=== PATIENT | female | born 2000 | race African-American/Black ===

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

== ENCOUNTER → 2021-04-07 | Outpatient (CLI) | payer OTHER ==
--- NOTE | 2021-04-07 15:39 | P.HPBAR ---
Bariatric H&P - History & Physicial H&P Date: 04/07/21 History & Physicial: Visit/CC: Patient initial contact: Initial weight: Initial weight in pounds: Height: 5 ft 4.5 in Initial BMI: Last weight: Current weight: 137.03 kg Current weight in pounds: Current BMI: [place] body weight (based on NIH guidelines): Excess body weight loss: The patient is a 21 year-old F who presents for Bariatric Assessment. DATE OF SERVICE: 04/07/2021 REASON FOR CONSULTATION: Initial bariatric evaluation. HISTORY OF PRESENT ILLNESS: Guillaume Desouza is a 21-year-old female who comes with lifelong morbid obesity. She has tried fasting. She reports new diagnosis of polycystic ovarian syndrome. Her grandmother has troubles with weight and had bariatric surgery. She is looking into the sleeve gastrectomy. She denies inflammatory bowel disease. She has lower back pain, hip pain, knee pain, left ankle pain, and bilateral foot pressure. She denies depression. She denies prior smoking. She has trouble with sleeping including falling asleep. She has A1c which she believes was normal. She reports chronic abdominal pain for years. She has her gallbladder. She has left upper quadrant and pelvic pain. She denies blood in stools. She denies chronic diarrhea. She has new change in bowel habits. She wants to be in a large not PLUS size. She has always been overweight including in high school. Her highest weight is present. She lost 20 pounds and regained her weight. At height of 5 feet 4.5 inches, her ideal body weight is 144 pounds. She comes in 301 pounds. Her body mass index is 51.1. She is 157 pounds overweight. PAST MEDICAL HISTORY: 1. Morbid obesity due to excess calories 2. Body mass index of 51.1, initial 3. Generalized anxiety disorder 4. Polycystic ovarian syndrome. 5. Osteoarthritis lower back. 6. Osteoarthritis hips 7. Osteoarthritis knees 8. Osteoarthritis left ankle 9. Osteoarthritis of the feet PAST SURGICAL HISTORY: 1. No abdominal surgeries HOME MEDICATIONS: Home Medications Medication Instructions Recorded Confirmed metFORMIN HCL [Glucophage] 500 mg PO BID 04/07/21 06/14/21 ALLERGIES: Allergies Allergy/AdvReac Type Severity Reaction Status Date / Time No Known Allergies Allergy Verified 06/14/21 08:53 SOCIAL HISTORY: Denies past tobacco use. FAMILY HISTORY: No family history of ulcerative colitis disease or Crohn's disease. Family history of morbid obesity. No lupus in the family. No reports of stomach or esophageal cancer. Her grandmother has troubles with weight and had bariatric surgery. REVIEW OF ORGAN SYSTEMS: CONSTITUTIONAL: HEENT: Denies any active troubles with vision or hearing. ENDOCRINE: Has diabetes. No hypothyroidism. CARDIOVASCULAR: Past reports of palpitations or heart attacks or chest pain. RESPIRATORY: Denies asthma. She has daytime somnolence. GASTROINTESTINAL: Denies any bright red blood per rectum. No diarrhea. No constipation. Has gastroesophageal reflux disease. GENITOURINARY: No recent blood in urine MUSCULOSKELETAL: Has lower back pain and joint pain. Has osteoarthritis of the knees. NEURO: No headaches. No seizure disorders. PSYCH: Denies depression. No suicidal ideation. RHEUMATOLOGIC: No lupus. No rheumatoid arthritis. HEMATOLOGIC: Denies any abnormal bleeding or bruising. SKIN: No rash. No skin cancer. PHYSICAL EXAM: VITAL SIGNS: Height 5 foot 4.5 inches, weight 301 pounds. BMI 51.1 Vital Signs Temp 98.2 F 04/07/21 15:30 Pulse 92 04/07/21 15:30 Resp 18 04/07/21 15:30 BP 123/89 04/07/21 15:30 Pulse Ox GENERAL: Well-developed in no acute distress. HEENT: No scleral icterus. Extraocular movements grossly intact. Hears conversational speech. No nasal drainage. NECK: Supple without lymphadenopathy. CHEST: Nonlabored respirations with equal bilateral excursions. CARDIOVASCULAR: Regular rate and regular rhythm. Distal 2+ pulses. ABDOMEN: Obese, soft, nontender, nondistended. MUSCULOSKELETAL: No clubbing, cyanosis. Gross strength grossly within normal limits. NEURO: No focal or lateralizing signs. Cranial nerves 2 through 12 grossly within normal limits. PSYCH: Appropriate affect. Alert and oriented to person, place and time. SKIN: Good skin turgor. Well perfused. ASSESSMENT: 1. Morbid obesity due to excess calories 2. Body mass index of 51.1, initial 3. Generalized anxiety disorder 4. Polycystic ovarian syndrome. 5. Osteoarthritis lower back. 6. Osteoarthritis hips 7. Osteoarthritis knees 8. Osteoarthritis left ankle 9. Osteoarthritis of the feet 10. Sleep disorder 11. Chronic abdominal pain 12. Change in bowel habits PLAN: 1. Surgical options including a band, gastric bypass, sleeve gastrectomy were described in detail. Alternatives such as gastric balloon including duodenal switch were described. She is looking into the sleeve gastrectomy. 2. The [place] bariatric surgical collaborative data and outcomes calculator were described with surgical options. Her risk of complications for sleeve gastrectomey is 4.96% for all. 3. Recommend a bariatric metabolic panel to evaluate for micro- including macronutrient deficiencies. 4. For history of daytime somnolence, recommend evaluation and treatment for s leep apnea. 5. Dietary surveillance and counseling was reviewed. Increased protein intake over 65 grams daily advised. 6. Will need cardiac risk assessment. 7. Recommend medical risk assessment. 8. Psych assessment per insurance guidelines. 9. Recommend upper endoscopy. 10. Recommend 12-lead EKG. 11. Recommend urine drug screen 12. Recommend CT of the abdomen and pelvis for her abdominal pain. 13. Recommend colonoscopy for change in bowel habits. Thank you for this consultation. Past Medical History Past Medical History: No Reported History History of Any Multi-Drug Resistant Organisms: None Reported Past Surgical History: No Surgical Hx Reported Past Psychological History: No Psychological Hx Reported Past Alcohol Use History: None Reported Past Drug Use History: None Reported Results - Labs 04/07/21 16:07 04/07/21 16:07 Bariatric Checklist Checklist: Plan: Checklist: EGD: 1. Hiatal hernia: 2. H. Pylori: HgbA1c: Vitamin D: Smoking: Never smoker Primary care physician referral: Psychiatry clearance: Cardiology clearance: Sleep study: Diet journal: VTE risk score: VTE risk level: Rehab needs at discharge:
[2021-04-07 15:53] VITALS: BP 123/89; PULSE 92; RESP 18; TEMP 98.2; BMI 51.0
[2021-04-07 17:22] LABS: Partial Thromboplastin Time 26.6 sec (22.0-30.0); Prothrombin Time 10.3 sec (9.0-12.0)
[2021-04-07 17:23] LABS: HCT 41.1 % (34.0-46.0); HGB 14.3 gm/dL (11.4-16.0); MCH 31.3 pg (25.0-35.0); MCHC 34.8 g/dL (31.0-37.0); MCV 89.9 fL (80.0-100.0); Mean Platelet Volume 7.1; Platelet Count 363 k/uL (150-450); RBC 4.57 m/uL (3.80-5.40); RDW 12.1 % (11.5-15.5); WBC 11.1 k/uL (4.0-11.0)
[2021-04-08 01:42] LABS: Hemoglobin A1C 4.8 % (4.0-6.0)
[2021-04-08 04:32] LABS: % Iron Saturation 28.88 (12.00-45.00); African American GFR (CKD) 144.6 (60.0-200.0); Albumin 4.5 g/dL (3.80-4.90); Albumin/Globulin Ratio 1.8 (1.60-3.17); Anion Gap 10.1 mmol/L (4.00-12.00); Calcium 9.3 mg/dL (8.7-10.3); Carbon Dioxide 23.9 mmol/L (21.6-31.8); Chol/HDL Ratio 4.4; Globulin 2.5 g/dL (1.6-3.3); LDL Cholesterol,Calculated 140.2 mg/dL (0.0-131.0); Magnesium 1.8 mg/dL (1.5-2.4); Non-African American GFR(CKD) 124.7 (60.0-200.0); Phosphorus 4.2 mg/dL (2.4-5.1); Potassium 4.1 mmol/L (3.5-5.5); Total Bilirubin 0.4 mg/dL (0.3-1.2); VLDL Calculation 19.8 mg/dL (5.00-40.00)
[2021-04-08 04:42] LABS: Ferritin 45.1 ng/mL (10.0-291.0); Folate, Serum 5.6 ng/mL
[2021-04-08 14:46] LABS: Vitamin A 39 ug/dL (38-106)
[2021-04-08 15:07] LABS: Zinc, Serum 64 ug/dL (60-130)
[2021-04-09 06:56] LABS: Vit B1(Thiamine) 78 ug/L (38-122)
[2021-04-10 15:57] LABS: Anabasine Urine <2.0 ng/mL (<2.0)
[2021-04-12 10:53] LABS: Selenium 100 mcg/L (63-160)
== END ==
LOC: BARWHC3 15:03
PROVIDERS: ATTEND Surgery Plastic and Reconstructive Surgery
DX: E66.01 Morbid (severe) obesity due to excess calories (principal); F41.1 Generalized anxiety disorder; E28.2 Polycystic ovarian syndrome; M47.9 Spondylosis, unspecified; M17.0 Bilateral primary osteoarthritis of knee; M16.0 Bilateral primary osteoarthritis of hip; M19.071 Primary osteoarthritis, right ankle and foot; M19.072 Primary osteoarthritis, left ankle and foot; G47.8 Other sleep disorders; R10.9 Unspecified abdominal pain; G89.29 Other chronic pain; Z68.43 Body mass index [BMI] 50.0-59.9, adult
CPT/HCPCS: 84255; 84134; 84425; 80061; 80053; 82607; 82728; 82525; 82746; 83540; 83550; 83735; 84100; 84443; 84590; 84630; 85027; 85610; 85730; 82306; 83970; 83036; 93005; G0480; G0463; 80323; 99203

== ENCOUNTER 2021-06-14 08:37 | Day surgery (SDC) | payer OTHER ==
[~2021-06-14 08:37] MED LIST: LACTATED RINGERS 1,000 ML IV SCH; LIDOCAINE 1% (10MG/ML) FOR IV START INTRADERMA PRN
[2021-06-14 09:13] VITALS: RESP 16; TEMP 97.4
[2021-06-14 09:13] LABS: Glucose,Whole Blood 87 mg/dL (75-99)
[2021-06-14] MEDS ORDERED: PROPOFOL 10 MG/ML 20 ML VIAL IV ONE (09:17)
[2021-06-14] MEDS ORDERED: LIDOCAINE 1% INJ 10MG/ML (20 ML MDV) ONE (09:17)
--- NOTE | 2021-06-14 09:32 | P.GSHP ---
History of Present Illness H&P Date: 06/14/21 CHIEF COMPLAINT: GERD HISTORY OF PRESENT ILLNESS: The patient is a 21-year-old female who presents reports gastroesophageal reflux disease. Upper endoscopy was offered for further evaluation and management. PAST MEDICAL HISTORY: Please see list. PAST SURGICAL HISTORY: Please see list. MEDICATIONS: Please see list. ALLERGIES: Please see list. SOCIAL HISTORY: No illicit drug use FAMILY HISTORY: No reports of Crohn disease or ulcerative colitis. REVIEW OF ORGAN SYSTEMS: CONSTITUTIONAL: No reports of fevers or chills. GI: Denies any blood in stools or constipation. PHYSICAL EXAM: VITAL SIGNS: Stable GENERAL: Well-developed and pleasant in no acute distress. HEENT: No scleral icterus. Extraocular movements grossly intact. Moist buccal mucosa. NECK: Supple without lymphadenopathy. CHEST: Unlabored respirations. Equal bilateral excursions. CARDIOVASCULAR: Regular rate and rhythm. Distal 2+ pulses. ABDOMEN: Soft, nondistended. MUSCULOSKELETAL: No clubbing, cyanosis, or edema. ASSESSMENT: 1. Gastroesophageal reflux disease PLAN: 1. Recommend proceeding with an upper endoscopy Past Medical History Past Medical History: No Reported History Additional Past Medical History / Comment(s): PCOS - metformin. History of Any Multi-Drug Resistant Organisms: None Reported Past Surgical History: No Surgical Hx Reported Additional Past Surgical History / Comment(s): BEING EVALUATED FOR BARIATRIC SURGERY Past Anesthesia/Blood Transfusion Reactions: No Reported Reaction, Motion Sickness Additional Past Anesthesia/Blood Transfusion Reaction / Comment(s): 04/07/21 - Pt reports never having anesthesia or blood transfusion. Past Psychological History: No Psychological Hx Reported Additional Psychological History / Comment(s): social anxiety, NO MEDS Smoking Status: Never smoker Past Alcohol Use History: None Reported Past Drug Use History: None Reported Medications and Allergies Home Medications Medication Instructions Recorded Confirmed Type metFORMIN HCL [Glucophage] 500 mg PO BID 04/07/21 06/14/21 History Allergies Allergy/AdvReac Type Severity Reaction Status Date / Time No Known Allergies Allergy Verified 06/14/21 08:53 Surgical - Exam Vital Signs Temp Pulse Resp BP Pulse Ox 97.4 F L 85 16 124/65 96 06/14/21 09:04 06/14/21 09:04 06/14/21 09:04 06/14/21 09:04 06/14/21 09:04
--- NOTE | 2021-06-14 09:44 | P.PCN ---
Date of Procedure: 06/14/21 Description of Procedure: PREOPERATIVE DIAGNOSIS: Gastroesophageal reflux disease. Morbid obesity. POSTOPERATIVE DIAGNOSIS: Morbid obesity. Gastritis. Gastroesophageal reflux disease. OPERATION: Esophagogastroduodenoscopy with biopsies along antrum. SURGEON: Mercy Smith MD ANESTHESIA: MAC. INDICATIONS: The patient is a 21-year-old female who presents with a history of reflux disease. Benefits and risks of the procedure were described. Informed consent was obtained. DESCRIPTION: The patient was brought into the endoscopy suite and laid in the left lateral decubitus position. An Olympus gastroscope was passed along the posterior oropharynx down to the distal esophagus where the squamocolumnar junction was encountered at 35 cm from the incisors. The stomach was entered and no bile reflux was found. Additional findings are listed below. Biopsies with cold forceps were obtained of the antrum. The first through third portion of the duodenum was examined and unremarkable. Retroflexion of the scope confirmed Hill grade 2 lower esophageal valve. The squamocolumnar junction demonstrated LA grade B erosive esophagitis. The stomach was desufflated. The patient tolerated the procedure well. FINDINGS: Squamocolumnar junction 35 cm from the incisors. Diaphragmatic hiatus at 35 cm. Hill grade 2 lower esophageal valve. LA grade B erosive esophagitis. No active duodenitis. Chronic gastritis with recent bleed RECOMMENDATIONS: Upper endoscopy as needed. Plan - Discharge Summary Discharge Rx Participant: No New Discharge Prescriptions: Continue metFORMIN HCL [Glucophage] 500 mg PO BID Discharge Medication List metFORMIN HCL [Glucophage] 500 mg PO BID 04/07/21 [History] [facility]Ref[facility] [place] [facility] [place] [facility] Patient Instructions/Handouts: Gastroesophageal Reflux Disease (ED), Gastritis (DC) Discharge Disposition: HOME SELF-CARE
[2021-06-14 09:46] VITALS: BP 116/78; PULSE 69
== END 2021-06-14 10:12 | disposition home or self-care (01) ==
LOC: ORWHC2ENDO 08:37
PROVIDERS: ATTEND Surgery Plastic and Reconstructive Surgery
DX: K29.50 Unspecified chronic gastritis without bleeding (principal); E28.2 Polycystic ovarian syndrome; F41.8 Other specified anxiety disorders; E11.9 Type 2 diabetes mellitus without complications; Z79.84 Long term (current) use of oral hypoglycemic drugs
CPT/HCPCS: 81025; 88305; 43239; J2001; J2704

== ENCOUNTER → 2021-07-17 | Outpatient (CLI) | payer OTHER ==
--- NOTE | 2021-07-19 07:57 | US ---
EXAMINATION TYPE: US pelvis complete transvag DATE OF EXAM: 07/17/2021 COMPARISON: NONE CLINICAL HISTORY: R10.2 pelvic pain. TECHNIQUE: Transvaginal (TV) and Transabdominal (TA) . Transabdominal sonographic images of the pel vis were acquired. Transvaginal sonographic images were medically necessary to better assess the fol lowing anatomy: ovaries Date of LMP: 07/04/2021 EXAM MEASUREMENTS: Uterus: 8.3 x 2.9 x 3.8 cm Endometrial Stripe: 0.5 cm Right Ovary: 4.9 x 2.4 x 2.9 cm Left Ovary: 2.9 x 1.7 x 2.4 cm 1. Uterus: Anteverted wnl 2. Endometrium: wnl 3. Right Ovary: wnl 4. Left Ovary: echogenic lesion measuring 1.3 x 1.1 x 1.4 cm. Spectral, color and waveform doppler imaging shows good arterial and venous flow within the ovaries ; there is no evidence for ovarian torsion. 5. Bilateral Adnexa: wnl 6. Posterior cul-de-sac: no free fluid IMPRESSION: Echogenic lesion left ovary may reflect a small dermoid. Examination is otherwise unremarkable.
== END | disposition home or self-care (01) ==
LOC: RADUSWWP 10:14
PROVIDERS: ATTEND Obstetrics & Gynecology
DX: N83.9 Noninflammatory disorder of ovary, fallopian tube and broad ligament, unspecified (principal)
CPT/HCPCS: 76830; 76856

== ENCOUNTER → 2021-12-20 | Outpatient (CLI) | payer OTHER ==
[2021-12-20 11:17] VITALS: BMI 45.6
== END ==
LOC: BARWHC3 09:12
PROVIDERS: ATTEND Surgery Plastic and Reconstructive Surgery
DX: E66.01 Morbid (severe) obesity due to excess calories (principal); Z71.3 Dietary counseling and surveillance; Z71.51 Drug abuse counseling and surveillance of drug abuser; Z68.42 Body mass index [BMI] 45.0-49.9, adult
CPT/HCPCS: 97804; G0480; 80323

== ENCOUNTER → 2021-12-20 | Outpatient (CLI) | payer OTHER ==
--- NOTE | 2021-12-20 11:10 | XR ---
EXAMINATION TYPE: XR chest 1V DATE OF EXAM: 12/20/2021 COMPARISON: NONE HISTORY: Presurgical study. TECHNIQUE: Single frontal view of the chest is obtained. FINDINGS: There is no focal air space opacity, pleural effusion, or pneumothorax seen. The cardiac silhouette size is within normal limits. The osseous structures are intact. IMPRESSION: No acute process.
== END | disposition home or self-care (01) ==
LOC: RADXRMAIN 10:51
PROVIDERS: ATTEND Surgery Plastic and Reconstructive Surgery
DX: Z01.818 Encounter for other preprocedural examination (principal); G47.30 Sleep apnea, unspecified
CPT/HCPCS: 71045

== ENCOUNTER → 2023-05-26 | Outpatient (CLI) | payer OTHER ==
[2023-05-26 15:30] LABS: INR 1.1 (<1.2); Partial Thromboplastin Time 28.3 sec (22.0-30.0); Prothrombin Time 11.4 sec (9.0-12.0)
[2023-05-26 20:56] LABS: Prealbumin 18.4 mg/dL (18.0-42.0)
[2023-05-26 21:04] LABS: Chol/HDL Ratio 5.73 Ratio; LDL Cholesterol,Calculated 164.3 mg/dL (0.0-131.0); Magnesium 1.9 mg/dL (1.5-2.4); VLDL Calculation 10.72 mg/dL (5.00-40.00)
[2023-05-26 21:05] LABS: ALT 22 U/L (8-44); AST 14 U/L (13-35); Albumin 4.6 d/dL (3.8-4.9); Albumin/Globulin Ratio 1.59 Ratio (1.60-3.17); Alkaline Phosphatase 81 U/L (41-126); BUN/Creat Ratio 12.75 Ratio (12.00-20.00); Blood Urea Nitrogen 10.2 mg/dL (9.0-27.0); Calcium 9.6 mg/dL (8.7-10.3); Carbon Dioxide 24.2 mmol/L (21.6-31.8); Chloride 105 mmol/L (96-109); Globulin 2.9 d/dL (1.6-3.3); Glucose 78 mg/dL (70-110); Iron 64 UG/DL (50-170); Phosphorus 3.8 mg/dL (2.4-5.1); Sodium 142 mmol/L (135-145); Total Bilirubin 0.4 mg/dL (0.3-1.2); Total Iron Binding Capacity 335 UG/DL (228-460); Total Protein 7.5 d/dL (6.2-8.2)
[2023-05-26 21:42] LABS: HCT 43.7 % (37.2-46.3); HGB 14.2 d/dL (12.0-15.0); MCH 30.1 pg (27.0-32.0); MCHC 32.5 d/dL (32.0-37.0); MCV 92.6 FL (80.0-97.0); Mean Platelet Volume 10.8 FL (9.5-12.2); NRBC Per 100 WBC 0 X 10*3/uL (0.00-0.01); Platelet Count 354 X 10*3/uL (140-440); RBC 4.72 X 10*6/uL (4.10-5.20); RDW 12.1 % (11.5-14.5); WBC 10.76 X 10*3/uL (4.50-10.00)
[2023-05-29 13:31] LABS: Zinc, Serum 78 ug/dL (60-130)
[2023-05-30 06:04] LABS: Vitamin A 34 ug/dL (38-106)
[2023-05-30 06:25] LABS: Vit B1(Thiamine) 65 ug/L (38-122)
[2023-05-30 06:49] LABS: Anabasine Urine <2.0 ng/mL (<2.0)
== END | disposition home or self-care (01) ==
LOC: LABWHC1 13:27
PROVIDERS: ATTEND Surgery Plastic and Reconstructive Surgery
DX: Z01.812 Encounter for preprocedural laboratory examination (principal); Z71.51 Drug abuse counseling and surveillance of drug abuser; E66.01 Morbid (severe) obesity due to excess calories; D50.8 Other iron deficiency anemias; E44.1 Mild protein-calorie malnutrition; E44.0 Moderate protein-calorie malnutrition; E45 Retarded development following protein-calorie malnutrition; E55.9 Vitamin D deficiency, unspecified; K74.1 Hepatic sclerosis; N19 Unspecified kidney failure; T56.894A Toxic effect of other metals, undetermined, initial encounter; K50.90 Crohn's disease, unspecified, without complications
CPT/HCPCS: 84255; 84134; 84425; 80061; 80053; 82607; 82728; 82525; 82746; 83540; 83550; 83735; 84100; 84443; 84590; 84630; 85027; 85610; 85730; 82306; 83970; 83036; 36415; G0480; 80323

== ENCOUNTER → 2024-01-17 | Outpatient (CLI) | payer OTHER ==
[2024-01-17 14:18] VITALS: BP 119/81; PULSE 73; TEMP 97.9; BMI 50.1
--- NOTE | 2024-01-17 14:33 | P.HPBAR ---
Bariatric H&P - History & Physicial H&P Date: 01/17/24 History & Physicial: Visit/CC: paolo consult Patient initial contact: Initial weight: 135.766 kg Initial weight in pounds: 299.31 Height: 5 ft 4 in Initial BMI: 51.3 Last weight: Current weight: 132.449 kg Current weight in pounds: 292.00 Current BMI: 50.1Highest [place] body weight (based on NIH guidelines): 54.431 kg Excess body weight loss: 4.0% The patient is a 23 year-old F who presents for Bariatric Assessment. 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 She was on saxenda without success. She is on wegovy. Highest weight is BMI over 50. Protein intake of 80 g, carbs of 35 grams net. Has intermittent nausea with saxenda. Has nausea. Highest 312 pounds. She wants the sleeve gastrectomy. Past Medical History Past Medical History: GERD/Reflux Additional Past Medical History / Comment(s): PCOS - metformin. Endometriosis. History of Any Multi-Drug Resistant Organisms: None Reported Past Surgical History: No Surgical Hx Reported Additional Past Surgical History / Comment(s): BEING EVALUATED FOR BARIATRIC SURGERY Past Anesthesia/Blood Transfusion Reactions: No Reported Reaction, Motion Sickness Additional Past Anesthesia/Blood Transfusion Reaction / Comm: 04/07/21 - Pt reports never having anesthesia or blood transfusion. Past Psychological History: No Psychological Hx Reported Additional Psychological History / Comment(s): social anxiety, NO MEDS Smoking Status: Never smoker Past Alcohol Use History: None Reported Past Drug Use History: None Reported Surgical - Exam Vital Signs Temp Pulse BP 97.9 F 73 119/81 01/17/24 14:01 01/17/24 14:01 01/17/24 14:01 Bariatric Checklist Checklist: Plan: Checklist: EGD: 1. Hiatal hernia: 2. H. Pylori: HgbA1c: Vitamin D: Smoking: Never smoker Primary care physician referral: Dr. Robb Psychiatry clearance: Cardiology clearance: Sleep study: Diet journal: VTE risk score: VTE risk level: Rehab needs at discharge:
== END ==
LOC: BARWHC3 13:45
PROVIDERS: ATTEND Surgery Plastic and Reconstructive Surgery
DX: Z53.9 Procedure and treatment not carried out, unspecified reason (principal)
CPT/HCPCS: 99211

== ENCOUNTER → 2024-02-05 | Outpatient (CLI) | payer OTHER ==
[2024-02-05 13:10] LABS: INR 1.1 (<1.2); Partial Thromboplastin Time 29.3 sec (22.0-30.0); Prothrombin Time 11.6 sec (10.0-12.5)
[2024-02-05 16:15] LABS: HCT 44.4 % (37.2-46.3); HGB 14.5 g/dL (12.0-15.0); MCHC 32.7 g/dL (32.0-37.0); MCV 91.7 FL (80.0-97.0); Mean Platelet Volume 10.7 FL (9.5-12.2); NRBC Per 100 WBC 0 X 10*3/uL (0.00-0.01); Platelet Count 340 X 10*3/uL (140-440); RBC 4.84 X 10*6/uL (4.10-5.20); RDW 12.2 % (11.5-14.5); WBC 8.73 X 10*3/uL (4.50-10.00)
[2024-02-05 16:34] LABS: Prealbumin 19.1 mg/dL (18.0-42.0)
[2024-02-05 16:53] LABS: % Iron Saturation 29.91 (12.00-45.00); Chol/HDL Ratio 4.76 Ratio; Iron 96 UG/DL (50-170); LDL Cholesterol,Calculated 148.4 mg/dL (0.0-131.0); Magnesium 1.9 mg/dL (1.5-2.4); Phosphorus 3.6 mg/dL (2.4-5.1); Total Iron Binding Capacity 321 UG/DL (228-460); VLDL Calculation 15.06 mg/dL (5.00-40.00)
[2024-02-05 16:54] LABS: ALT 11 U/L (8-44); AST 14 U/L (13-35); Albumin 4.4 g/dL (3.8-4.9); Albumin/Globulin Ratio 1.52 Ratio (1.60-3.17); Alkaline Phosphatase 86 U/L (41-126); BUN/Creat Ratio 17.43 Ratio (12.00-20.00); Blood Urea Nitrogen 12.2 mg/dL (9.0-27.0); Calcium 9.7 mg/dL (8.7-10.3); Carbon Dioxide 25.6 mmol/L (21.6-31.8); Chloride 105 mmol/L (96-109); Ferritin 60.8 ng/mL (10.0-291.0); Globulin 2.9 g/dL (1.6-3.3); Glucose 91 mg/dL (70-110); Potassium 4.6 mmol/L (3.5-5.5); Sodium 141 mmol/L (135-145); Total Bilirubin 0.5 mg/dL (0.3-1.2); Total Protein 7.3 g/dL (6.2-8.2)
[2024-02-06 11:38] LABS: Zinc, Serum 77 ug/dL (60-130)
[2024-02-07 06:42] LABS: Vitamin A 32 ug/dL (38-106)
[2024-02-07 10:01] LABS: Vit B1(Thiamine) 59 ug/L (38-122)
[2024-02-08 05:23] LABS: Anabasine Urine <2.0 ng/mL (<2.0)
[2024-02-11 20:09] LABS: Selenium 111 mcg/L (63-160)
== END | disposition home or self-care (01) ==
LOC: LABWHC1 11:26
PROVIDERS: ATTEND Surgery Plastic and Reconstructive Surgery
DX: E66.01 Morbid (severe) obesity due to excess calories (principal); E89.1 Postprocedural hypoinsulinemia; D50.8 Other iron deficiency anemias; K91.2 Postsurgical malabsorption, not elsewhere classified; E44.0 Moderate protein-calorie malnutrition; E44.1 Mild protein-calorie malnutrition; E45 Retarded development following protein-calorie malnutrition; E46 Unspecified protein-calorie malnutrition; E55.9 Vitamin D deficiency, unspecified; K74.1 Hepatic sclerosis; N19 Unspecified kidney failure; T56.894A Toxic effect of other metals, undetermined, initial encounter; K50.90 Crohn's disease, unspecified, without complications
CPT/HCPCS: 84255; 84134; 84425; 80061; 80053; 82607; 82728; 82525; 82746; 83540; 83550; 83735; 84100; 84443; 84590; 84630; 85027; 85610; 85730; 82306; 83970; 83036; 80307; 93005; 36415; G0480; 80323

== ENCOUNTER 2024-03-25 07:09 | Day surgery (SDC) | payer OTHER ==
[2024-03-21 11:37] VITALS: BMI 48.9
--- NOTE | 2024-03-25 06:17 | P.GSHP ---
History of Present Illness H&P Date: 03/25/24 CHIEF COMPLAINT: GERD HISTORY OF PRESENT ILLNESS: The patient is a 24-year-old female who presents reports gastroesophageal reflux disease. Upper endoscopy was offered for further evaluation and management. PAST MEDICAL HISTORY: Please see list. PAST SURGICAL HISTORY: Please see list. MEDICATIONS: Please see list. ALLERGIES: Please see list. SOCIAL HISTORY: No illicit drug use FAMILY HISTORY: No reports of Crohn disease or ulcerative colitis. REVIEW OF ORGAN SYSTEMS: CONSTITUTIONAL: No reports of fevers or chills. GI: Denies any blood in stools or constipation. PHYSICAL EXAM: VITAL SIGNS: Stable GENERAL: Well-developed and pleasant in no acute distress. HEENT: No scleral icterus. Extraocular movements grossly intact. Moist buccal mucosa. NECK: Supple without lymphadenopathy. CHEST: Unlabored respirations. Equal bilateral excursions. CARDIOVASCULAR: Regular rate and rhythm. Distal 2+ pulses. ABDOMEN: Soft, nondistended. MUSCULOSKELETAL: No clubbing, cyanosis, or edema. ASSESSMENT: 1. Gastroesophageal reflux disease PLAN: 1. Recommend proceeding with an upper endoscopy Past Medical History Past Medical History: GERD/Reflux Additional Past Medical History / Comment(s): PCOS, Endometriosis History of Any Multi-Drug Resistant Organisms: None Reported Past Surgical History: No Surgical Hx Reported Additional Past Surgical History / Comment(s): EGD Past Anesthesia/Blood Transfusion Reactions: No Reported Reaction, Motion Sickness Additional Past Anesthesia/Blood Transfusion Reaction / Comment(s): . Past Psychological History: Anxiety Additional Psychological History / Comment(s): social anxiety, NO MEDS Smoking Status: Never smoker Past Alcohol Use History: None Reported Past Drug Use History: None Reported Medications and Allergies Home Medications Medication Instructions Recorded Confirmed Type Cholecalciferol [Vitamin D3 (25 25 mcg PO DAILY 03/21/24 03/21/24 History Mcg = 1000 Iu)] Docusate [Colace] 100 mg PO BID 03/21/24 03/21/24 History Fish Oil/Dha/Epa [Fish Oil 1,200 1 each PO DAILY 03/21/24 03/21/24 History mg Fish Oil] Pantoprazole [Protonix] 40 mg PO DAILY 03/21/24 03/21/24 History Semaglutide [Wegovy] 1.7 mg SQ TU 03/21/24 03/21/24 History Allergies Allergy/AdvReac Type Severity Reaction Status Date / Time No Known Allergies Allergy Verified 03/21/24 11:00
[2024-03-25] MEDS: LACTATED RINGERS 1,000 ML IV SCH (07:26)
[2024-03-25 07:32] VITALS: RESP 18; TEMP 97.2
[2024-03-25 07:40] LABS: Glucose,Whole Blood 90 mg/dL (70-110)
[2024-03-25] MEDS ORDERED: PROPOFOL 10 MG/ML 20 ML VIAL IV ONE (07:48)
[2024-03-25] MEDS ORDERED: LIDOCAINE 2% (PF) 20 MG/ML 5 ML VIAL ONE (07:48)
--- NOTE | 2024-03-25 08:13 | P.PCN ---
Date of Procedure: 03/25/24 Description of Procedure: PREOPERATIVE DIAGNOSIS: Gastroesophageal reflux disease. Morbid obesity. POSTOPERATIVE DIAGNOSIS: Gastroesophageal reflux disease. Morbid obesity. Gastritis. OPERATION: Esophagogastroduodenoscopy with biopsies along esophagus, antrum and duodenum SURGEON: Mercy Smith MD ANESTHESIA: MAC. INDICATIONS: The patient is a 24-year-old female who presents with reflux disease. Benefits and risks of the procedure were described. Informed consent was obtained. DESCRIPTION: The patient was brought into the endoscopy suite and laid in the left lateral decubitus position. An Olympus gastroscope was passed along the posterior oropharynx down to the distal esophagus where the squamocolumnar junction was encountered at 35 cm from the incisors. The stomach was entered and no bile reflux was found. Additional findings are listed below. Biopsies with cold forceps were obtained of the antrum. The first through third portion of the duodenum was examined. Retroflexion of the scope confirmed Hill grade 2 lower esophageal valve. The squamocolumnar junction demonstrated LA grade B erosive esophagitis. The stomach was desufflated. The patient tolerated the procedure well. FINDINGS: Squamocolumnar junction 35 cm from the incisors. Diaphragmatic hiatus at 35 cm. Hill grade 2 lower esophageal valve. LA grade B erosive esophagitis. Biopsies obtained of the duodenum. Chronic gastritis with biopsies obtained. RECOMMENDATIONS: Upper endoscopy as needed. Plan - Discharge Summary Discharge Rx Participant: Yes New Discharge Prescriptions: Continue Docusate [Colace] 100 mg PO BID Fish Oil/Dha/Epa [Fish Oil 1,200 mg Fish Oil] 1 each PO DAILY Semaglutide [Wegovy] 1.7 mg SQ TU Pantoprazole [Protonix] 40 mg PO DAILY Cholecalciferol [Vitamin D3 (25 Mcg = 1000 Iu)] 25 mcg PO DAILY Discharge Medication List Cholecalciferol [Vitamin D3 (25 Mcg = 1000 Iu)] 25 mcg PO DAILY 03/21/24 [History] Docusate [Colace] 100 mg PO BID 03/21/24 [History] Fish Oil/Dha/Epa [Fish Oil 1,200 mg Fish Oil] 1 each PO DAILY 03/21/24 [History] Pantoprazole [Protonix] 40 mg PO DAILY 03/21/24 [History] Semaglutide [Wegovy] 1.7 mg SQ TU 03/21/24 [History] Follow up Appointment(s)/Referral(s): [facility] [NON-STAFF] - 04/10/24 Patient Instructions/Handouts: GERD (Gastroesophageal Reflux Disease) (DC) Discharge Disposition: HOME SELF-CARE
[2024-03-25 09:01] VITALS: BP 114/79; PULSE 69
== END 2024-03-25 08:38 | disposition home or self-care (01) ==
LOC: ORWHC2ENDO 07:09
PROVIDERS: ATTEND Surgery Plastic and Reconstructive Surgery
DX: K21.00 Gastro-esophageal reflux disease with esophagitis, without bleeding (principal); K29.50 Unspecified chronic gastritis without bleeding; K44.9 Diaphragmatic hernia without obstruction or gangrene; E66.01 Morbid (severe) obesity due to excess calories; Z68.42 Body mass index [BMI] 45.0-49.9, adult; F41.9 Anxiety disorder, unspecified; E28.2 Polycystic ovarian syndrome; Z79.85 Long-term (current) use of injectable non-insulin antidiabetic drugs; Z79.899 Other long term (current) drug therapy
CPT/HCPCS: 81025; 88305; 43239; J2704; J2001

== ENCOUNTER → 2024-04-01 | Outpatient (CLI) | payer OTHER ==
[2024-04-01 15:04] VITALS: BMI 48.9
== END ==
LOC: BARWHC3 13:01
PROVIDERS: ATTEND Surgery Plastic and Reconstructive Surgery
DX: E66.01 Morbid (severe) obesity due to excess calories (principal); Z71.3 Dietary counseling and surveillance; Z68.42 Body mass index [BMI] 45.0-49.9, adult
CPT/HCPCS: 97804

== ENCOUNTER → 2024-04-10 | Outpatient (CLI) | payer OTHER ==
[2024-04-10 13:35] VITALS: BP 117/83; PULSE 82; RESP 16; TEMP 98; BMI 48.4
--- NOTE | 2024-04-10 14:14 | P.BASOAP ---
Subjective Progress Note Date: 04/10/24 DATE OF SERVICE: 04/10/24 CHIEF COMPLAINT: Morbid obesity HISTORY OF PRESENT ILLNESS: Guillaume Desouza is a 24-year-old female who comes with lifelong morbid obesity. She is looking into the sleeve gastrectomy. She is undergoing medical risk assessment. She is undergoing bariatric risk assessment. At height of 5 feet 4.5 inches, her ideal body weight is 144 pounds. She comes in 282 pounds. Her body mass index was 51.1. Today body mass index 48.4. She is 138 pounds overweight. PAST MEDICAL HISTORY: 1. Morbid obesity due to excess calories 2. Body mass index of 51.1, initial 3. Generalized anxiety disorder 4. Polycystic ovarian syndrome. 5. Osteoarthritis lower back. 6. Osteoarthritis hips 7. Osteoarthritis knees 8. Osteoarthritis left ankle 9. Osteoarthritis of the feet PAST SURGICAL HISTORY: 1. No abdominal surgeries HOME MEDICATIONS: Home Medications Medication Instructions Recorded Confirmed Pantoprazole [Protonix] 40 mg PO QAM 03/21/24 05/31/24 Cetirizine HCl [Zyrtec] 10 mg PO DAILY 05/21/24 05/31/24 Previous Rx's Medication Instructions Recorded Acetaminophen Tab [Tylenol Tab] 1,000 mg PO Q6HR PRN #30 tablet 05/29/24 Omeprazole [PriLOSEC] 40 mg PO DAILY #30 cap 05/29/24 Ondansetron Odt [Zofran Odt] 4 mg PO Q8HR PRN #9 tab 05/29/24 Simethicone 40 mg/0.6 ml Drops 40 mg PO PCHS PRN #30 ml 05/29/24 [Mylicon Drops] bisacodyL [Dulcolax] 5 mg PO DAILY PRN #10 tab 05/29/24 ALLERGIES: Allergies Allergy/AdvReac Type Severity Reaction Status Date / Time No Known Allergies Allergy Verified 05/31/24 09:57 SOCIAL HISTORY: Denies past tobacco use. FAMILY HISTORY: No family history of ulcerative colitis disease or Crohn's disease. Family history of morbid obesity. No lupus in the family. No reports of stomach or esophageal cancer. Her grandmother has troubles with weight and had bariatric surgery. REVIEW OF ORGAN SYSTEMS: CONSTITUTIONAL: HEENT: Denies any active troubles with vision or hearing. ENDOCRINE: Has diabetes. No hypothyroidism. CARDIOVASCULAR: Past reports of palpitations or heart attacks or chest pain. RESPIRATORY: Denies asthma. She has daytime somnolence. GASTROINTESTINAL: Denies any bright red blood per rectum. No diarrhea. No constipation. Has gastroesophageal reflux disease. GENITOURINARY: No recent blood in urine MUSCULOSKELETAL: Has lower back pain and joint pain. Has osteoarthritis of the knees. NEURO: No headaches. No seizure disorders. PSYCH: Denies depression. No suicidal ideation. RHEUMATOLOGIC: No lupus. No rheumatoid arthritis. HEMATOLOGIC: Denies any abnormal bleeding or bruising. SKIN: No rash. No skin cancer. PHYSICAL EXAM: VITAL SIGNS: Height 5 foot 4.5 inches, weight 282 pounds. BMI 48.4 Vital Signs Temp 98 F 04/10/24 13:28 Pulse 82 04/10/24 13:28 Resp 16 04/10/24 13:28 BP 117/83 04/10/24 13:28 Pulse Ox FiO2 GENERAL: Well-developed in no acute distress. HEENT: No scleral icterus. Extraocular movements grossly intact. Hears conversational speech. No nasal drainage. NECK: Supple without lymphadenopathy. CHEST: Nonlabored respirations with equal bilateral excursions. CARDIOVASCULAR: Regular rate and regular rhythm. Distal 2+ pulses. ABDOMEN: Obese, soft, nontender, nondistended. MUSCULOSKELETAL: No clubbing, cyanosis. Gross strength grossly within normal limits. NEURO: No focal or lateralizing signs. Cranial nerves 2 through 12 grossly within normal limits. PSYCH: Appropriate affect. Alert and oriented to person, place and time. SKIN: Good skin turgor. Well perfused. LABS: Reviewed. Cholesterol elevated. Vitamin A level. Vitamin D low. EKG: Normal sinus rhythm. EGD FINDINGS: Squamocolumnar junction 35 cm from the incisors. Diaphragmatic hiatus at 35 cm. Hill grade 2 lower esophageal valve. LA grade B erosive esophagitis. Biopsies obtained of the duodenum. Chronic gastritis with biopsies obtained. Final Pathologic Diagnosis DUODENUM, BIOPSY: Benign small bowel mucosa with intact villous architecture, negative for histopathologic abnormality. B. GASTRIC ANTRUM, BIOPSY: Minimal chronic gastritis. Helicobacter pylori organisms are not identified on routine H+E sections. C. ESOPHAGUS, BIOPSY: Chronic esophagitis with focally prominent intramucosal eosinophils (maximum of 20 eosinophils per high power field). See note. Notes The features in part C could be consistent with eosinophilic esophagitis in the appropriate clinical context versus reflux esophagitis, or a combination of both processes. Recommend clinical and endoscopic correlation. ASSESSMENT: 1. Morbid obesity due to excess calories 2. Body mass index of 51.1, initial to 48.4 3. Generalized anxiety disorder 4. Polycystic ovarian syndrome. 5. Osteoarthritis lower back. 6. Osteoarthritis hips 7. Osteoarthritis knees 8. Osteoarthritis left ankle 9. Osteoarthritis of the feet 10. Sleep disorder 11. Chronic abdominal pain 12. Change in bowel habits 13. Hypercholesterolemia 14. Vitamin D deficiency 15. Vitamin A deficiency PLAN: 1. Bariatric options between a sleeve, band and a Vanesa-en-Y gastric bypass were reviewed in detail. The patient elected for a gastrectomy. Robotic assisted approach described. 2. The [place] [facility] Data was also reviewed with benefits and risks as described. 3. An 8 page second-generation bariatric consent form was reviewed in detail including potential of bleeding, infection, leaks, adequate weight loss, nutritional deficiencies which the patient demonstrated understanding of the risks. 4. A 2 week high-protein low caloric 800 kcal diet described to address hepatomegaly. 5. Preoperative labs including complete metabolic panel and CBC with type and screen recommended. 6. DVT prophylaxis per [place] [facility]. 7. Antibiotic prophylaxis. 8. Inpatient hospitalization anticipated for more than 2 nights. 9. All questions and concerns were addressed with the patient. 10. Overall, patient has expressed understanding of bariatric care including postoperative diet and commitment of lifestyle. Patient should benefit from surgical intervention for correction of her morbid obesity. 11. Labs reviewed with Vit D and A to be retaken. 12. EGD reviewed with eosinophilic esophagitis. Recommend Claritin and Zyrtec. 13. She does not have celiac diseas and may have any procedures. Her goal is to get down to 267 from 282 pounds for 15 pound weight loss. Objective - Vital Signs Vital signs: Vital Signs Temp 98 F 04/10/24 13:28 Pulse 82 04/10/24 13:28 Resp 16 04/10/24 13:28 BP 117/83 04/10/24 13:28 Pulse Ox FiO2 Intake & Output 04/09/24 04/10/24 04/10/24 18:59 06:59 18:59 Weight 127.913 kg Assessment/Plan Plan: Date: 04/10/24 Initial Weight: 135.766 kg Initial BMI: 51.3 Current Weight: 127.913 kg Current BMI: 48.4 Type of Surgery: Total Volume in Band: Previous Volume: Volume Removed: Volume Added: Band Size:
== END | disposition home or self-care (01) ==
LOC: BARWHC3 13:01
PROVIDERS: ATTEND Surgery Plastic and Reconstructive Surgery
DX: E66.01 Morbid (severe) obesity due to excess calories (principal); F41.1 Generalized anxiety disorder; E28.2 Polycystic ovarian syndrome; M47.816 Spondylosis without myelopathy or radiculopathy, lumbar region; M16.0 Bilateral primary osteoarthritis of hip; M17.0 Bilateral primary osteoarthritis of knee; M19.072 Primary osteoarthritis, left ankle and foot; G47.30 Sleep apnea, unspecified; G89.29 Other chronic pain; R10.9 Unspecified abdominal pain; R19.4 Change in bowel habit; E78.00 Pure hypercholesterolemia, unspecified; E55.9 Vitamin D deficiency, unspecified; E50.9 Vitamin A deficiency, unspecified; Z68.42 Body mass index [BMI] 45.0-49.9, adult
CPT/HCPCS: 99211

== ENCOUNTER → 2024-05-21 | Outpatient (CLI) | payer OTHER ==
[2024-05-21 18:41] LABS: Basophils # (A) 0.04 X 10*3/uL (0.00-0.10); Basophils % (A) 0.5 %; Eosinophils # (A) 0.42 X 10*3/uL (0.04-0.35); HCT 41.2 % (37.2-46.3); HGB 13.8 g/dL (12.0-15.0); Lymphocytes # (A) 2.22 X 10*3/uL (0.90-5.00); Lymphocytes % (A) 26.3 %; MCH 30.6 pg (27.0-32.0); MCHC 33.5 g/dL (32.0-37.0); MCV 91.4 FL (80.0-97.0); Mean Platelet Volume 10.8 FL (9.5-12.2); Monocytes # (A) 0.55 X 10*3/uL (0.20-1.00); Monocytes % (A) 6.5 %; NRBC Per 100 WBC 0 X 10*3/uL (0.00-0.01); Neutrophils # (A) 5.19 X 10*3/uL (1.80-7.70); Neutrophils % (A) 61.3 %; Platelet Count 333 X 10*3/uL (140-440); RBC 4.51 X 10*6/uL (4.10-5.20); RDW 12.5 % (11.5-14.5); WBC 8.45 X 10*3/uL (4.50-10.00)
[2024-05-21 19:51] LABS: ALT 13 U/L (8-44); AST 19 U/L (13-35); Albumin 4.7 g/dL (3.8-4.9); Albumin/Globulin Ratio 1.68 Ratio (1.60-3.17); Alkaline Phosphatase 82 U/L (41-126); BUN/Creat Ratio 22.83 Ratio (12.00-20.00); Blood Urea Nitrogen 13.7 mg/dL (9.0-27.0); Calcium 9.9 mg/dL (8.7-10.3); Carbon Dioxide 23.5 mmol/L (21.6-31.8); Chloride 102 mmol/L (96-109); Globulin 2.8 g/dL (1.6-3.3); Glucose 82 mg/dL (70-110); Potassium 4.9 mmol/L (3.5-5.5); Sodium 139 mmol/L (135-145); Total Bilirubin 0.4 mg/dL (0.3-1.2); Total Protein 7.5 g/dL (6.2-8.2)
== END | disposition home or self-care (01) ==
LOC: LABPAT 14:08
PROVIDERS: ATTEND Surgery Plastic and Reconstructive Surgery
DX: Z01.812 Encounter for preprocedural laboratory examination (principal); E66.01 Morbid (severe) obesity due to excess calories; E55.9 Vitamin D deficiency, unspecified
CPT/HCPCS: 80053; 82306; 84590; 85025; 86850; 86900; 86901

== ENCOUNTER 2024-05-27 12:35 | Inpatient (IN) | payer OTHER ==
--- NOTE | 2024-05-27 07:58 | P.GSHP ---
History of Present Illness H&P Date: 05/27/24 CHIEF COMPLAINT: Morbid obesity HISTORY OF PRESENT ILLNESS: Guillaume Desouza is a 24-year-old female who comes with lifelong morbid obesity. She has tried fasting. She reports new diagnosis of polycystic ovarian syndrome. Her grandmother has troubles with weight and had bariatric surgery. She is looking into the sleeve gastrectomy. She denies inflammatory bowel disease. She has lower back pain, hip pain, knee pain, left ankle pain, and bilateral foot pressure. She denies depression. She denies prior smoking. She has trouble with sleeping including falling asleep. She has A1c which she believes was normal. She reports chronic abdominal pain for years. She has her gallbladder. She has left upper quadrant and pelvic pain. She denies blood in stools. She denies chronic diarrhea. She has new change in bowel habits. She wants to be in a large not PLUS size. She has always been overweight including in high school. Her highest weight is present. She lost 20 pounds and regained her weight. She has completed bariatric risk assessment including medical and psychiatric risk assessment. At height of 5 feet 4.5 inches, her ideal body weight is 144 pounds. She comes in 282 pounds from 301 pounds, 3 years ago. She has lost 31 pounds in 3 years. Her body mass index was 51.1. Today body mass index 45.6. She is 117 pounds overweight. PAST MEDICAL HISTORY: 1. Morbid obesity due to excess calories 2. Body mass index of 51.1, initial 3. Generalized anxiety disorder 4. Polycystic ovarian syndrome. 5. Osteoarthritis lower back. 6. Osteoarthritis hips 7. Osteoarthritis knees 8. Osteoarthritis left ankle 9. Osteoarthritis of the feet PAST SURGICAL HISTORY: 1. No abdominal surgeries HOME MEDICATIONS: Home Medications Medication Instructions Recorded Confirmed metFORMIN HCL [Glucophage] 500 mg PO BID 04/07/21 06/14/21 ALLERGIES: Allergies Allergy/AdvReac Type Severity Reaction Status Date / Time No Known Allergies Allergy Verified 06/14/21 08:53 SOCIAL HISTORY: Denies past tobacco use. FAMILY HISTORY: No family history of ulcerative colitis disease or Crohn's disease. Family history of morbid obesity. No lupus in the family. No reports of stomach or esophageal cancer. Her grandmother has troubles with weight and had bariatric surgery. REVIEW OF ORGAN SYSTEMS: CONSTITUTIONAL: HEENT: Denies any active troubles with vision or hearing. ENDOCRINE: Has diabetes. No hypothyroidism. CARDIOVASCULAR: Past reports of palpitations or heart attacks or chest pain. RESPIRATORY: Denies asthma. She has daytime somnolence. GASTROINTESTINAL: Denies any bright red blood per rectum. No diarrhea. No constipation. Has gastroesophageal reflux disease. GENITOURINARY: No recent blood in urine MUSCULOSKELETAL: Has lower back pain and joint pain. Has osteoarthritis of the knees. NEURO: No headaches. No seizure disorders. PSYCH: Denies depression. No suicidal ideation. RHEUMATOLOGIC: No lupus. No rheumatoid arthritis. HEMATOLOGIC: Denies any abnormal bleeding or bruising. SKIN: No rash. No skin cancer. PHYSICAL EXAM: VITAL SIGNS: Height 5 foot 4.5 inches, weight 270 pounds. BMI 45.6 GENERAL: Well-developed in no acute distress. HEENT: No scleral icterus. Extraocular movements grossly intact. Hears conversational speech. No nasal drainage. NECK: Supple without lymphadenopathy. CHEST: Nonlabored respirations with equal bilateral excursions. CARDIOVASCULAR: Regular rate and regular rhythm. Distal 2+ pulses. ABDOMEN: Obese, soft, nontender, nondistended. MUSCULOSKELETAL: No clubbing, cyanosis. Gross strength grossly within normal limits. NEURO: No focal or lateralizing signs. Cranial nerves 2 through 12 grossly within normal limits. PSYCH: Appropriate affect. Alert and oriented to person, place and time. SKIN: Good skin turgor. Well perfused. ASSESSMENT: 1. Morbid obesity due to excess calories 2. Body mass index of 51.1, initial 3. Generalized anxiety disorder 4. Polycystic ovarian syndrome. 5. Osteoarthritis lower back. 6. Osteoarthritis hips 7. Osteoarthritis knees 8. Osteoarthritis left ankle 9. Osteoarthritis of the feet 10. Sleep disorder 11. Chronic abdominal pain 12. Change in bowel habits PLAN: 1. Bariatric options between a sleeve, band and a Vanesa-en-Y gastric bypass were reviewed in detail. The patient elected for a sleeve gastrectomy. Robotic assisted approach described. 2. The [place] [facility] Data was also reviewed with benefits and risks as described. 3. An 8 page second-generation bariatric consent form was reviewed in detail including potential of bleeding, infection, leaks, adequate weight loss, nutritional deficiencies which the patient demonstrated understanding of the risks. 4. A 2 week high-protein low caloric 800 kcal diet described to address hepatomegaly. 5. Preoperative labs including complete metabolic panel and CBC with type and screen recommended. 6. DVT prophylaxis per [place] [facility]. 7. Antibiotic prophylaxis. 8. Inpatient hospitalization anticipated for more than 2 nights. 9. All questions and concerns were addressed with the patient. 10. The patient is at elevated risk for perioperative complications with sleep apnea and hypertensive heart disease. 11. Overall, patient has expressed understanding of bariatric care including postoperative diet and commitment of lifestyle. Patient should benefit from surgical intervention for correction of morbid obesity. 12. She is elevated risk due to pre-existing comorbid conditions 13. She has obtained her weight loss goals Past Medical History Past Medical History: GERD/Reflux Additional Past Medical History / Comment(s): PCOS, Endometriosis. Esophagitis. History of Any Multi-Drug Resistant Organisms: None Reported Past Surgical History: No Surgical Hx Reported Additional Past Surgical History / Comment(s): EGD. Past Anesthesia/Blood Transfusion Reactions: No Reported Reaction, Motion Sickness Additional Past Anesthesia/Blood Transfusion Reaction / Comment(s): . Smoking Status: Never smoker - Past Family History Mother Family Medical History: No Reported History Medications and Allergies Home Medications Medication Instructions Recorded Confirmed Type Cholecalciferol [Vitamin D3 (25 25 mcg PO DAILY 03/21/24 05/21/24 History Mcg = 1000 Iu)] Docusate [Colace] 300 mg PO DAILY 03/21/24 05/21/24 History Fish Oil/Dha/Epa [Fish Oil 1,200 1 each PO DAILY 03/21/24 05/21/24 History mg Fish Oil] Pantoprazole [Protonix] 40 mg PO QAM 03/21/24 05/21/24 History Cetirizine HCl [Zyrtec] 10 mg PO DAILY 05/21/24 05/21/24 History Semaglutide [Wegovy] 2.4 mg SQ TH 05/21/24 05/21/24 History Allergies Allergy/AdvReac Type Severity Reaction Status Date / Time No Known Allergies Allergy Verified 05/21/24 10:39
[~2024-05-27 12:35] MED LIST changes: +ENOXAPARIN 40 MG/0.4 ML SYRINGE SQ PRN; -LACTATED RINGERS 1,000 ML IV SCH; +METOCLOPRAMIDE 5 MG/ML 2 ML VIAL IVP PRN; +MIDAZOLAM 2 MG/2 ML VIAL IV PRN; +fentaNYL (PF) 50 MCG/ML 2 ML AMP IV PRN
[2024-05-27] MEDS: LACTATED RINGERS 1,000 ML IV SCH (13:19)
[2024-05-27] MEDS: ACETAMINOPHEN TAB 500 MG TAB PO PRN (13:19)
[2024-05-27] MEDS: SCOPOLAMINE 1 MG/72 HR PATCH TRANSDERM STA (13:19)
[2024-05-27] MEDS: CHLORHEXIDINE GLUCONATE 15 ML CUP MUCOUS MEM STA (13:19)
[2024-05-27] MEDS: ALVIMOPAN 12 MG CAPSULE PO PRN (13:19)
[2024-05-27] MEDS: ENOXAPARIN 40 MG/0.4 ML SYRINGE SQ STA (13:20)
[2024-05-27] MEDS: ONDANSETRON 4 MG/2 ML VIAL IVP PRN (13:26)
[2024-05-27] MEDS: DEXAMETHASONE SOD PHOSPHATE 4 MG/ML 1 ML VIAL IVP STA (13:29)
[2024-05-27] MEDS: fentaNYL (PF) 50 MCG/ML 2 ML AMP IVP ONE (13:47)
[2024-05-27] MEDS: MIDAZOLAM 2 MG/2 ML VIAL IVP ONE (13:47)
[2024-05-27] MEDS: IV FLUID CONTINUATION 1,000 ML IV ONE (14:00)
--- NOTE | 2024-05-27 14:02 | P.ANPRN ---
Procedure Note - Anesthesia - Nerve Block Performed Bilateral Erector Spinae Single Time Out Performed: Yes Date of Procedure: 05/27/24 Procedure Start Time: 13:46 Procedure Stop Time: 13:53 Location of Patient: PreOp Indication: Acute Post-Operative Pain, Requested by Surgeon Sedation Type: Sedate with meaningful contact maintained Preparation: Sterile Prep Position: Prone Needle Types: Pajunk Needle Gauge: 21 Ultrasound used to visualize needle placement: Yes Ultrasound used to observe medication spread: Yes Injectate: 0.5% Ropivacaine (see comment for volume) (20 ml + 10 ml NS + 4 mg Dexamethasone per side) Blood Aspirated: No Pain Paresthesia on Injection Noted: No Resistance on Injection: Normal Image Stored and Saved: Yes Events: Uneventful and Well Tolerated
[2024-05-27] MEDS ORDERED: KETAMINE HCL IN 0.9 % NACL 50 MG/5 ML SYRINGE ONE (14:32)
[2024-05-27] MEDS ORDERED: DEXAMETHASONE SOD PHOSPHATE 4 MG/ML 1 ML VIAL ONE (14:32)
[2024-05-27] MEDS ORDERED: GLYCOPYRROLATE 0.2 MG/ML 2 ML VIAL ONE (14:32)
[2024-05-27] MEDS ORDERED: SODIUM CHLORIDE 0.9% (PF) 10 ML VIAL ONE (14:32)
[2024-05-27] MEDS ORDERED: ROPIVACAINE 5 MG/ML 30 ML VIAL ONE (14:32)
[2024-05-27] MEDS ORDERED: LIDOCAINE 1% INJ 10MG/ML (20 ML MDV) ONE (14:32)
[2024-05-27] MEDS ORDERED: HYDROmorphone (PF) 1 MG/ML ONE (14:32)
[2024-05-27] MEDS ORDERED: PROPOFOL 10 MG/ML 20 ML VIAL IV ONE (14:32)
[2024-05-27] MEDS ORDERED: MIDAZOLAM 2 MG/2 ML VIAL ONE (14:32)
[2024-05-27] MEDS ORDERED: SUCCINYLCHOLINE CHLORIDE 200 MG/10 ML VIAL IV ONE (14:32)
[2024-05-27] MEDS ORDERED: ROCURONIUM 10 MG/ML (5 ML VIAL) IV ONE (14:32)
[2024-05-27] MEDS ORDERED: PHENYLEPHRINE 10 MG/ML VIAL ONE (14:32)
[2024-05-27] MEDS ORDERED: fentaNYL (PF) 50 MCG/ML 2 ML AMP ONE (14:32)
[2024-05-27] MEDS ORDERED: NEOSTIGMINE 1 MG/ML 10 ML VIAL ONE (14:32)
[2024-05-27] MEDS: ceFAZolin 3 GM in SODIUM CHLORIDE 0.9% 100 ML IVPB PRN (14:35)
[2024-05-27] MEDS: LIDOCAINE 1%-EPI 1:100,000 20 ML VIAL SQ ONE (15:12)
[2024-05-27] MEDS: LACTATED RINGERS 1,000 ML IV ONE (15:36)
[2024-05-27] MEDS ORDERED: NALOXONE 0.4 MG/ML 1 ML VIAL IV PRN ×2 (16:37→16:46)
[2024-05-27] MEDS ORDERED: HYDROmorphone 1 MG/ML 1 ML SYRINGE IVP PRN (16:38)
--- NOTE | 2024-05-27 16:43 | P.OP ---
Date of Procedure: 05/27/24 Description of Procedure: SURGEON: JOSE RAUL SLATER MD PREOPERATIVE DIAGNOSES: 1. Morbid obesity due to excess calories 2. Body mass index of 51.1, initial 3. Generalized anxiety disorder 4. Polycystic ovarian syndrome. 5. Osteoarthritis lower back. 6. Osteoarthritis hips 7. Osteoarthritis knees 8. Osteoarthritis left ankle 9. Osteoarthritis of the feet 10. Sleep disorder 11. Chronic abdominal pain 12. Change in bowel habits POSTOPERATIVE DIAGNOSES: 1. Morbid obesity due to excess calories 2. Body mass index of 51.1, initial 3. Generalized anxiety disorder 4. Polycystic ovarian syndrome. 5. Osteoarthritis lower back. 6. Osteoarthritis hips 7. Osteoarthritis knees 8. Osteoarthritis left ankle 9. Osteoarthritis of the feet 10. Sleep disorder 11. Chronic abdominal pain 12. Change in bowel habits 13. Mild hepatomegaly 14. No large hiatal hernia OPERATION: 1. Robotic assisted daVinci Xi laparoscopic sleeve gastrectomy with 40-Guinean bougie, multiport. 2. Intraoperative esophagogastroduodenoscopy. ANESTHESIA: Gen. local anesthetic ESTIMATED BLOOD LOSS: 40 mL SPECIMENS REMOVED: Sleeve gastrectomy COMPLICATIONS: None. FINDINGS: 1. Negative intraoperative esophagogastrojejunoscopy leak test. 2. Mild hepatomegaly and no large hiatus hernia. 3. Total of 6 staplers used including 1 - 60 mm green robot shona and 5 - 60 mm blue robot loads used to create the gastric sleeve. 4. Sleeve gastrectomy, 23 x 7 cm INDICATIONS: Guillaume Desouza is a 24-year-old female who comes with lifelong morbid obesity. She presents for sleeve gastrectomy. She has completed bariatric risk assessment including medical and psychiatric risk assessment. At height of 5 feet 4.5 inches, her ideal body weight is 144 pounds. She comes in 282 pounds from 301 pounds, 3 years ago. She has lost 31 pounds in 3 years. Her body mass index was 51.1. Today body mass index 45.6. She is 117 pounds overweight. All surgical options for morbid obesity had been described using the [place] bariatric surgery collaborative comorbidity resolution including complication risk score. A second-generation bariatric consent form was described in detail including the possibility of protein malnutrition, leaks, gastric stricture, venous thrombosis, gastroesophageal reflux disease, need for further surgery for which she demonstrated understanding. Benefits and risks of the procedure were described at length. Informed consent was obtained. DESCRIPTION: The patient was brought into the operating room theater. Preoperatively she had received Lovenox subcutaneously for DVT prophylaxis. Additionally she had Peridex oral solution as an oral decontaminant. After general induction, the abdomen was prepped and draped in standard sterile fashion. An Ioban draping was placed along the abdomen. A robotic da Sreekanth Xi system was prepped and primed. At 15 cm from the xiphoid, proposed port sites were marked with indelible marker along the anterior axillary line bilaterally, mid axillary line bilaterally with each ports were marked 10 to 15 cm from each other. The robotic stapler port was marked for the right midclavicular line. A 5 mm 0 degrees laparoscopic trocar entry was performed along the left upper quadrant. The abdomen was insufflated to 15 mmHg pressure was tolerated well. Diagnostic laparoscopy demonstrated no injury to bowel, viscera, or mesentery. No evidence of large hiatus hernia was identified. The liver edge was slightly thickened due to mild hepatomegaly despite 2-week protein diet. A 8 mm port was placed along the left upper abdominal wall after exchanging the 5 mm port. A separate 8 mm port was placed along the left lateral abdominal wall. Please note that the ports were placed at least 20 cm away from the target anatomy. Care was taken to check each robotic arms were safely away from collision with the bed or the patient. Next, 12-mm robot stapler port was placed along the right upper quadrant. The camera 8-mm port was maintained along the epigastrium. The patient was repositioned in reverse Trendelenburg position at 25-degrees after lowering the bed. The robot was docked along the left side of the patient. Using a grasper for arm 4, a vessel sealer for arm 3, including grasper for arm 1, the robotic system was docked and primed as described. Instruments were interchanged by the assistant real estate manager for stapler loads. The camera was placed at 30- degrees down. I had sat at the console. The pylorus was identified and 6 cm proximally along the greater curvature of the stomach, the short gastrics were mobilized upwards to the angle of His using a vessel sealer. Hemostasis was excellent during this portion of the procedure. Next, the upper pole of the stomach was adherent to the left lupillo, which was gently dissected free using atraumatic grasper. I went to the head of the bed and placed 40-Guinean blunt bougie into the stomach. The bougie was readjusted by the nurse school aide. Robotic stapler black load 60 mm 1 followed by green 60 mm x 1, and blue 60 mm loads x 4 were used to create the sleeve. Initial firing was across the antrum of the stomach towards the angle of His. The staple line was linear without corkscrewing. The space from the angularis incisura of the sleeve was julissa roximately 4 cm. I then went to the head of the bed to perform the intraoperative esophagogastroduodenoscopy leak test. The bougie was withdrawn. The upper pole of the stomach was bathed using normal saline solution. The scope was withdrawn with careful inspection along the staple line for which no leaks were found along the entire length. Additionally,the sleeve was completely hemostatic with out any encroachment along the angularis incisura. Its topology was a soft "J". No stricture was encountered upon placement of the scope. The GI tract was desufflated. The patient tolerated this portion of the procedure well. The scope was completely withdrawn. The robot was undocked. I then rescrubbed into case, whereby the irrigation fluid was aspirated from the abdominal cavity. Tisseel fibrin sealant was placed along the entire staple length. Once dried the Camron liver retractor was removed. Attention was now brought to removal of the specimen. The distal end of the sleeve gastrectomy specimen was brought out through the 12 mm port at the left upper quadrant. The specimen was gently removed en total. No contamination had occurred during this process. All instruments and pneumoperitoneum including irrigation fluid was removed from the abdominal cavity. The 12 mm port site was closed using 0-Vicryl and Scott Francis and irrigated with diluted hydrogen peroxide. The final incisions were closed using subcuticular interrupted suture of 4-0 Monocryl. Dermabond was applied to the skin once the skin had been cleansed. OptiFoam dressing was placed along the stomach extraction site. The sleeve specimen was measured and checked also for leaks which none were found. At the end of the procedure, needle, sponge, and instrument count was verified correct by the operating room surgical technologist. The patient was taken to the postanesthesia care unit in stable condition. The patient had tolerated the procedure well. Intraoperative films and findings were reviewed with the patient's family.
[2024-05-27] MEDS: HYDROmorphone 0.5 MG/0.5 ML SYRINGE IVP PRN (16:58)
[2024-05-27] MEDS: droPERidol 5 MG/2 ML VIAL IVP ONE (18:13)
[2024-05-27] MEDS: PANTOPRAZOLE 40 MG/10 ML VIAL IVP STA (18:13)
[2024-05-27] MEDS: ACETAMINOPHEN IV (For NPO) 1,000 MG in EMPTY BAG 1 BAG IVPB SCH (18:17)
[2024-05-27] MEDS: DEXAMETHASONE SOD PHOSPHATE 4 MG/ML 1 ML VIAL IVP SCH (18:17)
[2024-05-27] MEDS: SIMETHICONE 80 MG CHEWABLE PO SCH (18:17)
[2024-05-27] MEDS: ONDANSETRON 4 MG/2 ML VIAL IVP SCH (18:17)
[2024-05-27] MEDS: fentaNYL PCA 500 MCG/50 ML BAG IV SCH (18:39)
[2024-05-27] MEDS: 0.9% NACL WITH KCL 20 MEQ/L 1,000 ML IV SCH (18:40)
[2024-05-27] MEDS: PANTOPRAZOLE 40 MG/10 ML VIAL IV SCH (20:52)
[2024-05-27] MEDS: HYOSCYAMINE ORAL DROPS 1.875 MG/15 ML BOTTLE PO SCH (20:52)
[2024-05-27] MEDS: DEXAMETHASONE SOD PHOSPHATE 10 MG/ML 1 ML VIAL IVP ONE (20:53)
[2024-05-27] MEDS: ALBUTEROL NEBULIZED 2.5 MG/3 ML INHALATION SCH (21:35)
[2024-05-27] MEDS: ceFAZolin 3 GM in SODIUM CHLORIDE 0.9% 100 ML IVPB SCH (21:46)
[2024-05-27] MEDS: SODIUM CHLORIDE 0.9% 2,000 ML IV ONE (23:32)
[2024-05-28] MEDS: 0.9% NACL WITH KCL 20 MEQ/L 1,000 ML IV SCH (01:20)
[2024-05-28] MEDS: ENOXAPARIN 40 MG/0.4 ML SYRINGE SQ SCH (08:08)
[2024-05-28] MEDS: LORATADINE 10 MG TAB PO SCH (08:11)
[2024-05-28 08:37] LABS: Basophils # (A) 0.02 X 10*3/uL (0.00-0.10); Basophils % (A) 0.2 %; Eosinophils # (A) 0 X 10*3/uL (0.04-0.35); Eosinophils % (A) 0 %; HCT 40.8 % (37.2-46.3); HGB 13.6 g/dL (12.0-15.0); Lymphocytes # (A) 0.62 X 10*3/uL (0.90-5.00); Lymphocytes % (A) 5.1 %; MCH 30.2 pg (27.0-32.0); MCHC 33.3 g/dL (32.0-37.0); MCV 90.5 FL (80.0-97.0); Mean Platelet Volume 10.8 FL (9.5-12.2); Monocytes # (A) 0.06 X 10*3/uL (0.20-1.00); Monocytes % (A) 0.5 %; NRBC Per 100 WBC 0 X 10*3/uL (0.00-0.01); Neutrophils # (A) 11.34 X 10*3/uL (1.80-7.70); Neutrophils % (A) 93.6 %; Platelet Count 341 X 10*3/uL (140-440); RBC 4.51 X 10*6/uL (4.10-5.20); RDW 12.8 % (11.5-14.5); WBC 12.11 X 10*3/uL (4.50-10.00)
[2024-05-28 08:54] LABS: Blood Urea Nitrogen 5.2 mg/dL (9.0-27.0); Calcium 8.8 mg/dL (8.7-10.3); Carbon Dioxide 16.8 mmol/L (21.6-31.8); Chloride 102 mmol/L (96-109); Magnesium 1.7 mg/dL (1.5-2.4); Potassium 4.5 mmol/L (3.5-5.5); Sodium 136 mmol/L (135-145)
[2024-05-28 11:27] VITALS: BMI 45.9
--- NOTE | 2024-05-28 13:57 | FL ---
EXAMINATION TYPE: FL UGI DATE OF EXAM: 05/28/2024 COMPARISON: None HISTORY: Gastric sleeve TECHNIQUE: A single contrast Limited UGI study is performed. FINDINGS: Contrast passes from the distal esophagus through the gastric sleeve with out hesitancy. On the lateral overhead radiographs there is a small collection of contrast posterior to the level of the duodenal head. This could be related to the duodenum itself. This appears to be away from the lo cation of the gastric sleeve, extravasation is considered less likely. Correlate with the patient's s ymptoms. If closer evaluation would be of benefit, consider CT. Report was called to the patient's nu rse by Dr. Ojeda at time of interpretation. No free air is noted during this examination. Fluoroscopy time: 50 seconds. DAP: 2181.20. Images: 13 IMPRESSION: 1. Small amount of contrast on a single overhead radiograph likely a portion of the duodenum. A small extravasation is not excluded.
--- NOTE | 2024-05-28 14:32 | P.PN ---
Progress Note - Text Progress Note Date: 05/28/24 I was notified by RN regarding abnormal esophagram. I personally discussed findings with Dr. Ojeda. Intraoperative findings clearly test was negative. Will proceed with stat CT abdomen without contrast as discussed with radiologist. Discharge on hold pending repeat studies.
--- NOTE | 2024-05-28 16:30 | CT ---
EXAMINATION TYPE: CT abdomen wo con DATE OF EXAM: 05/28/2024 COMPARISON: Limited upper GI same date INDICATION: Abnormal Esophagram. RECENT GASTRIC BYPASS DLP: 905.7 mGycm, Automated exposure control for dose reduction was used. CONTRAST: 0 mL of Isovue 300. Study performed without Oral Contrast. Oral contrast is on board from earlier upper GI TECHNIQUE: Axial images were obtained from above the diaphragm to the pubic rami in the axial plane a t 5 mm thick sections. Reconstructed images are reviewed on the computer in the coronal plane. FINDINGS: Minimal free air within the abdomen is present consistent with patient's previous day surge ry. Limited CT sections are obtained the lung bases. Minimal platelike atelectasis may be at the lung ba ses. CT ABDOMEN: Liver: Normal Spleen: Normal Pancreas: Normal Adrenal glands: The adrenal glands are normal. Gallbladder: Normal Kidneys: No masses are evident. No hydronephrosis is present. No cysts are present. No renal stone s are identified. Aorta: Normal Inferior vena cava: Normal. Bowel: Attention is paid to the patient's recent gastric sleeve. Oral contrast within the proximal st omach the gastric sleeve within the stomach to the duodenum. No extravasation is evident. There is ho wever a small protrusion of contrast which remains intraluminal at the posterior duodenal bulb. Examp le images series 201 image 27 and series 203 image 59. This appears to correlate with the limited upp er GI. Consider possible ulcer. May be some tortuosity through the duodenal bulb. Extravasation is no t felt to be present. Oral contrast passes into proximal jejunum which appear unremarkable as visuali zed. IMPRESSION: 1. No suspicious changes to suggest extravasation of contrast.
[2024-05-28 20:26] VITALS: RESP 18
--- NOTE | 2024-05-28 22:57 | CONS ---
CONSULTATION CHIEF COMPLAINT: Morbid obesity. HISTORY OF PRESENT ILLNESS: This lady is coming in for an elective bariatric procedure. She has otherwise been in good health. REVIEW OF SYSTEMS: She has had no chest pain, fever, chills, abdominal pain, diabetes, etc. PAST MEDICAL HISTORY, FAMILY HISTORY, PERSONAL AND SOCIAL HISTORY: Are otherwise unremarkable or noncontributory. ALLERGIES: She is not allergic to any medication. MEDICATIONS: She has been on Wegovy, but no other medications. SOCIAL HISTORY: She does not smoke or drink. PHYSICAL EXAMINATION: VITAL SIGNS: Normal. Blood pressure 108/76 with a pulse of 80. She is afebrile. GENERAL: She appeared to be overweight, but healthy. Skin color is normal. HEENT: Head, ears, eyes, nose, mouth and throat were normal. NECK: Veins not distended. CHEST: Clear. CARDIAC: Normal sinus rhythm. ABDOMEN: Protuberant, soft, and nontender. EXTREMITIES: Normal. NEUROLOGICAL: She is intact. DIAGNOSIS: She is admitted to the hospital with diagnosis, 1. Morbid obesity, planned bariatric surgery. MMODL / IJN: [id number] /
--- NOTE | 2024-05-28 23:13 | PN ---
PROGRESS NOTE DATE OF SERVICE: 05/28/2024 CHIEF COMPLAINT: Status post gastric sleeve. HISTORY OF PRESENT ILLNESS: This lady is doing fairly well, but she is having fair amount of pain. She has not passed gas yet. PHYSICAL EXAMINATION: VITAL SIGNS: Normal. CHEST: Clear. CARDIAC: Normal. IMPRESSION: 1. Status post gastric stapling. 2. Obesity. PLAN: Progress activity and diet and discharge once her GI function has returned. MMODL / IJN: [id number] /
[2024-05-29] MEDS: diphenhydrAMINE 50 MG/ML 1 ML VIAL IVP PRN (00:48)
[2024-05-29] MEDS ORDERED: bisacodyL 5 MG TABLET.DR PO PRN (08:00)
[2024-05-29 08:07] VITALS: BP 117/61; PULSE 80; TEMP 98.1
--- NOTE | 2024-05-29 09:18 | P.PN ---
Subjective Progress Note Date: 05/29/24 CHIEF COMPLAINT: Morbid obesity HISTORY OF PRESENT ILLNESS: The patient is a 24-year-old female status post sleeve gastrectomy. Yesterday, esophagram was inconclusive with repeat CT scan demonstrating no leak. She is tolerating liquids. Her pain is controlled. ROS: No reports of nausea and vomiting. No bowel movements. No fevers or chills. No new chest pain. No productive sputum PHYSICAL EXAM: VITAL SIGNS: Reviewed CONSTITUTIONAL: Well developed and in no acute distress. EYES: Conjuctivae without sclera icterus. Extraocular movements grossly intact. HEAD, EARS, NOSE, THROAT: Moist buccal mucosa. Head is atraumatic, normocephalic. Hears conversational speech. No nasal drainage. RESPIRATORY: Non-labored respirations and equal bilateral excursions. CARDIOVASCULAR: Palpable 2+ radial pulses. ABDOMEN: Appropriate quad incisional pain. No fevers or infection. MUSCULOSKELETAL: No gross deformity of the lower extremities noted. No clubbing. No cyanosis. SKIN: Good skin turgor. Well perfused. NEUROLOGIC: Cranial nerves II through XII grossly intact. No focal or lateraliz ing signs. PSYCH: Appropriate affect. Alert and oriented to person, place and time. CLINICAL LABS: Reviewed. Hemoglobin stable STUDIES: CT of the abdomen pelvis independently reviewed demonstrates no leaks or obstruction. Esophagram reviewed demonstrates no obstruction. ASSESSMENT: 1. Morbid obesity due to excess calories 2. Status post sleeve gastrectomy PLAN: 1. Imaging studies were reviewed for which patient is doing well. May be discharged with follow-up in the bariatric center in 72-hour Objective - Vital Signs Vital signs: Vital Signs Temp 98.1 F 05/29/24 08:00 Pulse 80 05/29/24 08:00 Resp 18 05/29/24 08:00 BP 117/61 05/29/24 08:00 Pulse Ox 97 05/29/24 08:00 FiO2 Intake & Output 05/28/24 05/29/24 05/29/24 18:59 06:59 18:59 Weight 121.5 kg Other: Voiding Method Toilet # Voids 4 3 - Labs CBC & Chem 7: 05/28/24 03:15 05/28/24 03:15
== END 2024-05-29 12:20 | disposition home or self-care (01) | DRG 403 ==
LOC: 2ORMAIN 12:35 → 4SSUR 17:12
PROVIDERS: ADMIT Surgery Plastic and Reconstructive Surgery; ATTEND Surgery Plastic and Reconstructive Surgery
PROC: 0DJ08ZZ Inspection of Upper Intestinal Tract, Via Natural or Artificial Opening Endoscopic (ICD-10-PCS; 2024-05-27)
PROC: 8E0W4CZ Robotic Assisted Procedure of Trunk Region, Percutaneous Endoscopic Approach (ICD-10-PCS; 2024-05-27)
PROC: 0DB64Z3 Excision of Stomach, Percutaneous Endoscopic Approach, Vertical (ICD-10-PCS; principal; 2024-05-27 13:35)
DX: E66.01 Morbid (severe) obesity due to excess calories (principal); Z68.42 Body mass index [BMI] 45.0-49.9, adult; M16.0 Bilateral primary osteoarthritis of hip; M47.9 Spondylosis, unspecified; R16.0 Hepatomegaly, not elsewhere classified; M19.071 Primary osteoarthritis, right ankle and foot; G89.29 Other chronic pain; G47.9 Sleep disorder, unspecified; F41.1 Generalized anxiety disorder; E28.2 Polycystic ovarian syndrome; M17.0 Bilateral primary osteoarthritis of knee; M19.072 Primary osteoarthritis, left ankle and foot; Z79.84 Long term (current) use of oral hypoglycemic drugs; Z28.21 Immunization not carried out because of patient refusal; Z71.3 Dietary counseling and surveillance
CPT/HCPCS: 64999; 74150; 74240; 80051; 81025; 82310; 82565; 83735; 84100; 84520; 85025; 88307; 94640; 94760

== ENCOUNTER → 2024-05-31 | Outpatient (CLI) | payer OTHER ==
--- NOTE | 2024-05-31 09:49 | P.BASOAP ---
Subjective Progress Note Date: 05/31/24 Patient reports decreased oral intake including minimal use of urination. Recommend IV fluid bolus and at least 16 ounces of fluids to drink while she is present. Close follow-up outpatient. Otherwise no reflux. She is having bowel movements. No nausea or vomiting. Assessment/Plan Plan: Date: Initial Weight: 135.766 kg Initial BMI: Current Weight: Current BMI: Type of Surgery: Total Volume in Band: Previous Volume: Volume Removed: Volume Added: Band Size:
[2024-05-31] MEDS: SODIUM CHLORIDE 0.9% 1,000 ML IV ONE (09:50)
[2024-05-31 10:00] VITALS: BP 117/81; PULSE 103
[2024-05-31 10:09] VITALS: RESP 14; TEMP 97.8; BMI 45.3
== END ==
LOC: BARWHC3 08:41
PROVIDERS: ATTEND Surgery Plastic and Reconstructive Surgery
DX: E86.0 Dehydration (principal)
CPT/HCPCS: 96360; G0463; 99211

== ENCOUNTER → 2024-06-04 | Outpatient (CLI) | payer OTHER ==
[2024-06-04 10:45] VITALS: BP 111/77; PULSE 90; RESP 16; TEMP 97.6
[2024-06-04] MEDS: SODIUM CHLORIDE 0.9% 1,000 ML IV SCH (10:49)
== END ==
LOC: PROCWHC3 10:33
PROVIDERS: ATTEND Surgery Plastic and Reconstructive Surgery
DX: E86.0 Dehydration (principal)
CPT/HCPCS: 96360; 96361

== ENCOUNTER → 2024-06-18 | Outpatient (CLI) | payer OTHER ==
[~2024-06-18] MED LIST changes: -ENOXAPARIN 40 MG/0.4 ML SYRINGE SQ PRN; -LIDOCAINE 1% (10MG/ML) FOR IV START INTRADERMA PRN; -METOCLOPRAMIDE 5 MG/ML 2 ML VIAL IVP PRN; -MIDAZOLAM 2 MG/2 ML VIAL IV PRN; +SODIUM CHLORIDE 0.9% 500 ML 500 ML in EMPTY BAG 1 BAG IV PRN; -fentaNYL (PF) 50 MCG/ML 2 ML AMP IV PRN
[2024-06-18 10:37] VITALS: BP 111/78; PULSE 88; RESP 16; TEMP 97.6
[2024-06-18] MEDS: SODIUM CHLORIDE 0.9% 1,000 ML IV SCH (10:41)
== END ==
LOC: PROCWHC3 10:17
PROVIDERS: ATTEND Surgery Plastic and Reconstructive Surgery
DX: E86.0 Dehydration (principal)
CPT/HCPCS: 96360; 96361